=== PATIENT | male | born 1950 | race Caucasian/White ===

== ENCOUNTER → 2017-08-06 | Outpatient (CLI) | payer OTHER ==
--- NOTE | 2017-08-06 20:37 | MRI ---
EXAM DESCRIPTION: Lumbar Spine w/o Contrast MRI. CLINICAL HISTORY: INTERVERTEBRAL DISC DISPLACEMENT COMPARISON: None. TECHNIQUE: Multiplanar, multiple standard sequences, non contrast MRI, lumbar spine. FINDINGS: L5-S1: Moderate disc space loss. Disc desiccation. Minimal anterior bulging and endplate ridging. Trace retrolisthesis. Posterior broad-based disc osteophyte complex bulge 4.5 mm abutting the thecal sac and the upper subarticular recesses bilaterally abutting the descending S1 nerves. AP canal diameter 10 mm. Bilateral Modic type II endplate reactive changes. Disc osteophyte complex encroaching on the right foramen which is stenotic. Minimal encroachment on the left foramen which is moderately narrowed. Bilateral mild flavum ligament hypertrophy and facet arthrosis. L4-5: Severe disc space loss anterior bulging and endplate ridging. Modic type II endplate reactive changes of the midline into the left of midline with disc spur complex encroaching on the left foramen which is stenotic. Mild narrowing of the right foramen. Trace retrolisthesis. Posterior broad-based disc osteophyte bulge mostly to the left of midline. Bilateral subarticular recess stenosis with the disc abutting the bilateral descending L5 nerves. Bilateral facet and ligament hypertrophy. AP canal diameter 10 mm. L3-4: Minimal disc desiccation. Central posterior Schmorl's node inferior L3 endplate. Minimal anterior bulging. Posterior broad-based 4 mm disc bulge and bilateral flavum ligament hypertrophy and facet arthrosis. Posterior epidural fat contributing to canal narrowing, AP diameter 8 mm. Mild right foraminal narrowing. L2-3: Disc desiccation minimal anterior bulging. Focal anterior Modic type II endplate reactive changes. Trace anterolisthesis. Tiny posterior midline disc bulge. Moderate ligament hypertrophy and facet arthrosis with facet joints oriented almost in the sagittal plane and T-shaped canal. AP canal diameter 9 mm. Bilateral foramina are patent. L1-2: Mild disc desiccation no significant bulging. Facet arthrosis and ligament hypertrophy with facets are oriented in the sagittal plane. Mild canal narrowing. Bilateral foramina are patent. T12-L1: Minimal disc space narrowing and disc desiccation. Conus terminates at this level. Bilateral foramina are patent. Paravertebral soft tissues show minimal muscle atrophy. Normal marrow signal in the remaining vertebral bodies and the posterior elements. Vertebral bodies are not compressed at any level. IMPRESSION: 1. L5-S1 spondylosis. Disc degeneration and disc space loss. Posterior disc osteophyte complex bulge into the canal abutting the descending S1 nerves in the bilateral subarticular recesses. Right side disc osteophyte complex causing right foraminal stenosis. Correlate for right L5 radiculopathy. 2. Advanced spondylosis with disc osteophyte complex encroaching on the left foramen. Correlate for left L4 radiculopathy. Borderline mild canal stenosis. 3. Mild canal stenosis at L3-4 and L2-3 which is multifactorial, disc bulge and epidural fat at L3-4 and hypertrophy of the posterior elements at L2-3 with T-shaped canal. Correlate for bilateral radiculopathy at each level. Electronically signed by: Bhanu Vanegas MD 08/06/2017 8:36 PM [facility]
== END ==
LOC: MRI 10:10
PROVIDERS: ATTEND Nurse Practitioner Family
DX: M51.27 Other intervertebral disc displacement, lumbosacral region (principal); M47.897 Other spondylosis, lumbosacral region

== ENCOUNTER → 2018-01-09 | Outpatient (CLI) | payer MEDICARE | LOC: LAB.O 11:05 | PROVIDERS: ATTEND Nurse Practitioner Family | DX: I10 Essential (primary) hypertension (principal); E11.65 Type 2 diabetes mellitus with hyperglycemia; Z12.5 Encounter for screening for malignant neoplasm of prostate | CPT/HCPCS: 36415; 80053; 80061; 82043; 82570; 83036; 84443; 85025; G0103 ==